=== PATIENT | male | born 1990 | race Caucasian/White ===

== ENCOUNTER 2021-04-05 11:17 | Emergency (ER) | payer BC, SELFPAY ==
--- NOTE | ~2021-04-05 | XR_ITS ---
EXAMINATION: XR foot RT min 3V DATE: 04/05/2021 11:42 INDICATION: Lateral right foot pain and swelling TECHNIQUE: Dorsoplantar, two oblique and lateral views of the right foot were obtained. COMPARISON: None. FINDINGS: Alignment is normal. No fracture. Joint spaces are normal. Soft tissues are unremarkable. IMPRESSION: 1. Negative right foot radiographs. Reviewed, dictated and finalized at location A.
[2021-04-05 11:31] VITALS: BP 126/73; PULSE 86; RESP 18; TEMP 37.3; O2SAT 98
--- NOTE | 2021-04-05 12:02 | ED.GENADULT ---
HPI - General Adult General Chief complaint: Extremity Injury, Lower Stated complaint: Possible injury to right Foot Time Seen by Provider: 04/05/21 12:03 Source: patient and RN notes reviewed Mode of arrival: ambulatory Limitations: no limitations History of Present Illness HPI narrative: 30-year-old male presents today with complaints of right foot pain for 1 day. Desmond reports RT foot rolled outward when he stepped off a curb at approximated 17:00 on 04/04/2021. Ice and Ibuprofen last this morning at 10:00 AM without relief. Hurts to bear weight. No radiation of pain. No numbness, tingling, or loss of mobility. Exacerbating factor applying weight. Denies inability to bear weight. Denies discoloration. Denies suspect foreign body. Denies hitting head or loss of consciousness. Denies fever or chills. Remains active. The patient reports he has not been diagnosed with COVID-19. The patient reports he does not have weakness, fatigue, or myalgia. The patient reports he does not have a new or worsening cough or shortness of breath. The patient reports he does not have any rhinorrhea, congestion, loss of taste or smell, sore throat, and diarrhea. Denies recent traveling. Denies concerns for COVID-19 or exposures. At this time, the patient is not suspected of having COVID-19. Some parts of this dictation were generated by voice recognition software and may contain typographical and/or grammatical inaccuracies. Related Data Allergies Allergy/AdvReac Type Severity Reaction Status Date / Time No Known Allergies Allergy Verified 04/05/21 11:35 Review of Systems Review of Systems: CONSTITUTIONAL: Denies fever, chills, sweats. EYES: Denies visual changes, redness, discharge. ENT: Denies rhinorrhea, congestion, sore throat, otalgia. CARDIOVASCULAR: Denies chest pain, palpitations, edema. RESPIRATORY: Denies dyspnea, wheezing, cough. GASTROINTESTINAL: Denies abdominal pain, nausea, vomiting, diarrhea. SKIN: Denies rash or itching. MUSCULOSKELETAL: Denies acute back pain or myalgia. Complaints of pain to the right foot. NEUROLOGIC: Denies numbness or focal weakness. PSYCHIATRIC: Denies anxiety or depression. All other systems reviewed are negative, except as documented in HPI and below. [facility] Past Medical History Medical History (Updated 04/06/21 @ 00:01 by Halie Bose) Wrist fracture, left Surgical History Surgical History (Updated 04/05/21 @ 12:14 by LAURA Birch) History of dental surgery History of surgery on left wrist Family History Family History (Updated 04/05/21 @ 12:15 by LAURA Birch) Father Alive and well Mother Alive and well Social History Social History (Updated 04/05/21 @ 12:15 by LAURA Birch) Smoking packs per day: 0.25 Smoking cigarettes per day: 5.0 Smoking status: Current every day smoker Tobacco type: cigarettes Second hand tobacco smoke exposure: Yes Alcohol intake: current Substance use: never Substance use type: does not use Living arrangements: with family Occupation/Education: occupation Gender identity (if verbalized by the patient): Male Sexual Orientation (if Verbalized by the Patient): Straight or Heterosexual Comments At time of signature, agree with the nurse past medical, surgical, social, and family history. There is no relevant family history pertinent to the presenting complaint. Exam Narrative: GENERAL: This is a well-nourished, well-developed patient, in no apparent distress. Ambulates with a limp favoring the right lower extremity. HEAD: Normocephalic, atraumatic. EYES: PERRL. Sclera clear/white. Vision is grossly intact. CARDIOVASCULAR: Regular rate and rhythm without murmurs, gallops, or rubs. RESPIRATORY: Clear to auscultation. Breath sounds equal bilaterally. No wheezes, rales, or rhonchi. GASTROINTESTINAL: Abdomen soft, non-tender, nondistended. Bowel sounds are active. No hepato-spleno
== END 2021-04-05 12:15 | disposition home or self-care (01) ==
PROVIDERS: Emergency Provider Nurse Practitioner Family
DX: S93.601A Unspecified sprain of right foot, initial encounter (principal); X50.9XXA Other and unspecified overexertion or strenuous movements or postures, initial encounter
CPT/HCPCS: 73630; 99213; G0463

== ENCOUNTER 2021-05-26 09:41 | Emergency (ER) | payer BC, SELFPAY ==
--- NOTE | ~2021-05-26 | XR_ITS ---
EXAMINATION: XR chest 2V DATE: 05/26/2021 10:11 INDICATION: Productive cough. Shortness of breath. TECHNIQUE: Frontal and lateral views of the chest were obtained. COMPARISON: None. FINDINGS: The chest demonstrates clear lungs without pneumonia, pleural effusion, or pneumothorax. Th e heart size is normal. IMPRESSION: 1. No acute cardiopulmonary disease. Reviewed, dictated and finalized at location A.
--- NOTE | 2021-05-26 09:49 | ED.URI ---
HPI - URI/Sore Throat General Chief Complaint: Upper Respiratory Infection Stated Complaint: Cough/Chest Congestion/Shortness Breath Time Seen by Provider: 05/26/21 09:49 Source: patient and RN notes reviewed History of Present Illness HPI Narrative: Patient is a 30-year-old male who presents the urgent care with complaints of 1 week cough with increased congestion and shortness of breath for the last 2 days. Patient states that he had a low-grade fever a few days ago which has since resolved. Patient has been using Mucinex and [id number] cold and flu medication for the last couple days. States that he has not been exposed to Covid and does not have a Covid vaccine. Currently denies of any chest tightness or pain. Denies of any nausea or vomiting. No other acute complaints. No acute distress noted. Patient aware of the plan of care. Some parts of this dictation were generated by voice recognition software and may contain typographical and/or grammatical inaccuracies. Related Data Allergies Allergy/AdvReac Type Severity Reaction Status Date / Time No Known Allergies Allergy Verified 05/26/21 10:19 Review of Systems Review of Systems: CONSTITUTIONAL: Denies fever, chills, or sweats. EYES: Denies visual changes, redness, or discharge. ENT: Reports of mild congestion and postnasal drainage CARDIOVASCULAR: Denies chest pain, palpitations, or edema. RESPIRATORY: Reports of nonproductive cough with intermittent dyspnea GASTROINTESTINAL: Denies abdominal pain, nausea, vomiting, or diarrhea. GENITOURINARY: Denies dysuria or hematuria. SKIN: Denies rash or itching. MUSCULOSKELETAL: Denies back pain, joint pain, or myalgia. NEUROLOGIC: Denies headache, numbness, or weakness. All other systems reviewed are negative, except as documented in HPI. [facility] Past Medical History Medical History (Updated 05/26/21 @ 10:24 by LAURA Gandhi) Wrist fracture, left Surgical History Surgical History (Updated 04/05/21 @ 12:14 by LAURA Birch) History of dental surgery History of surgery on left wrist Family History Family History (Updated 04/05/21 @ 12:15 by LAURA Birch) Father Alive and well Mother Alive and well Social History Social History (Updated 04/05/21 @ 12:15 by LAURA Birch) Smoking packs per day: 0.25 Smoking cigarettes per day: 5.0 Smoking status: Current every day smoker Tobacco type: cigarettes Second hand tobacco smoke exposure: Yes Alcohol intake: current Substance use: never Substance use type: does not use Gender identity (if verbalized by the patient): Male Sexual Orientation (if Verbalized by the Patient): Straight or Heterosexual Comments At the time of my signature, I reviewed and agree with the nursing past medical, surgical, social, and family history. There is no relevant family history pertinent to the patient complaint. Exam Narrative: GENERAL: This is a well-nourished, well-developed patient, in no apparent distress. HEAD: normocephalic, atraumatic. EYES: PERRL. Sclera clear/white. Vision is grossly intact. EARS: External ears normal, auditory canals clear and without drainage, mild fluid noted by bilateral TMs without otitis, TMs normal without perforation. Hearing grossly intact. NOSE: External nose normal with no obvious nasal discharge, nares without redness, clear rhinorrhea. THROAT: Mucous membranes moist, posterior pharynx clear. Moderate postnasal drainage NECK: Neck supple, non-tender without lymphadenopathy, masses or thyromegaly. CARDIOVASCULAR: Regular rate and rhythm without murmurs, gallops, or rubs. RESPIRATORY: Inspiratory and expiratory wheezes throughout with mild crackles. Diminished left lower SKIN: warm, intact with no suspicious lesions or rash, good texture and turgor. NEURO: awake, alert, and oriented to person, place and time. There were no obvious focal neurologic abnormalities. EXTREMITIES: No clubbing, cyanosis,
[2021-05-26 09:57] VITALS: BP 124/85; PULSE 82; RESP 18; TEMP 36.9; O2SAT 96
== END 2021-05-26 10:25 | disposition home or self-care (01) ==
PROVIDERS: Emergency Provider Nurse Practitioner Family
DX: J40 Bronchitis, not specified as acute or chronic (principal); F17.210 Nicotine dependence, cigarettes, uncomplicated
CPT/HCPCS: 71046; 99213; G0463

== ENCOUNTER 2022-03-19 08:23 | Emergency (ER) | payer BC, SELFPAY ==
[2022-03-19 08:30] VITALS: BP 137/77; PULSE 113; RESP 24; TEMP 37.2; O2SAT 95
--- NOTE | 2022-03-19 08:32 | ED.URI ---
HPI - URI/Sore Throat General Chief Complaint: Upper Respiratory Infection Stated Complaint: Chest Congestion/Body Ache Time Seen by Provider: 03/19/22 08:41 Source: patient and RN notes reviewed Mode of arrival: ambulatory Limitations: no limitations History of Present Illness HPI Narrative: 31 y/o male presented for c/o fever 100.7, cough, body aches for 2-3 days. Took negative home covid test the day sx started. Taking mucinex and ibuprofen for symptoms. Pt quit smoking cigarettes this month, continues to vape. Endorses sick contacts. Denies chest pain, palpitations, sob, wheezing, nausea, vomiting, diarrhea. MD elicited complaint: cough Related Data Allergies Allergy/AdvReac Type Severity Reaction Status Date / Time No Known Allergies Allergy Verified 03/19/22 08:32 Review of Systems Review of Systems: CONSTITUTIONAL: Endorses malaise, chills, sweats, fever EYES: Denies visual changes, redness, or discharge ENT: Reports rhinorrhea, congestion, denies sinus pain, otalgia, sore throat CARDIOVASCULAR: Denies chest pain, palpitations, edema RESPIRATORY: Reports cough, post nasal drainage. Denies dyspnea GASTROINTESTINAL: Denies abdominal pain, nausea, vomiting, diarrhea SKIN: Denies rash or itching MUSCULOSKELETAL: Endorses myalgia NEUROLOGIC: Denies headache PMFSH Past Medical History Medical History Wrist fracture, left Surgical History Surgical History History of dental surgery History of surgery on left wrist Family History Family History Father Alive and well Mother Alive and well Social History Social History Smoking packs per day: 0.25 Smoking cigarettes per day: 5.0 Smoking status: Current every day smoker Tobacco type: cigarettes Second hand tobacco smoke exposure: Yes Alcohol intake: current Substance use: never Substance use type: does not use Gender identity (if verbalized by the patient): Male Sexual Orientation (if Verbalized by the Patient): Straight or Heterosexual Exam Narrative: GENERAL: Ill-appearing, nontoxic EYES: conjunctivae clear ENT: Mucous membranes moist. TM pearly parnell with dull light reflex bilaterally; no tragal tenderness. Oropharynx erythematous without lesions or exudate, no drooling, no hoarseness, no trismus, uvula midline. CHEST: Expiratory wheezing throughout all carvalho. No respiratory distress, speaks in full sentences. HEART: Regular rate and rhythm. No murmur heard. SKIN: Warm, dry, no rash. NEURO: Alert and oriented x3. PSYCH: Normal mood and affect Course Course Emergency Course: Patient is aware of diagnosis, understands and agrees to treatment plan. Anticipatory guidance given. Patient agrees to follow-up as directed and is aware of reasons to seek care at the emergency department. Portions of this record may have been created with voice recognition software Level of Care: Express Care Visit Vital Signs Vital signs: Vital Signs Temperature 99 F 03/19/22 08:30 Pulse Rate 113 H 03/19/22 08:30 Respiratory Rate 24 H 03/19/22 08:30 Blood Pressure 137/77 03/19/22 08:30 Pulse Oximetry 95 03/19/22 08:30 Oxygen Delivery Room Air 03/19/22 08:30 Temperature 99 F 03/19/22 08:30 Pulse Rate 113 H 03/19/22 08:30 Respiratory Rate 24 H 03/19/22 08:30 Blood Pressure 137/77 03/19/22 08:30 Pulse Oximetry 95 03/19/22 08:30 Oxygen Delivery Room Air 03/19/22 08:30 reviewed MDM - URI/Sore Throat MDM Narrative Medical decision making narrative: Covid negative, reviewed with pt. Advised supportive measures and signs/symptoms to go to the ER. Pt is appropriate for outpt treatment and f/u. Differential Diagnosis Differential diagnosis: Likely upper respiratory infection, sinusitis
== END 2022-03-19 09:12 | disposition home or self-care (01) ==
PROVIDERS: Emergency Provider Nurse Practitioner Family
DX: J40 Bronchitis, not specified as acute or chronic (principal); Z20.822 Contact with and (suspected) exposure to COVID-19; F17.210 Nicotine dependence, cigarettes, uncomplicated
CPT/HCPCS: 87426; 99213; C9803; G0463

== ENCOUNTER 2022-05-30 08:23 | Emergency (ER) | payer BC, SELFPAY ==
--- NOTE | 2022-05-30 08:23 | ED.MALEGU ---
HPI - Male Genitourinary General Chief complaint: Urogenital-Male Stated complaint: poss uti Time Seen by Provider: 05/30/22 08:24 Source: patient and RN notes reviewed History of Present Illness HPI Narrative: Patient is a 31-year-old male who presents the urgent care with complaints of dark urine, fatigue and intermittent fevers. Patient states that last week he had fevers off and on and was just not feeling right . Patient states that he has felt sick with an upper respiratory infection for the last few weeks and has been treating himself with [id number] Mucinex. Patient states that those symptoms have gotten better. States that he went out on Monday and woke up yesterday with increased dark urine and some abdominal discomfort. Patient states he has been making bowel movements but yet feels constipated. Patient has not taken anything [id number] for his symptoms. Denies any concern for STD. No other acute complaints. No acute distress noted. Patient aware of the plan of care. Some parts of this dictation were generated by voice recognition software and may contain typographical and/or grammatical inaccuracies. Related Data Allergies Allergy/AdvReac Type Severity Reaction Status Date / Time No Known Allergies Allergy Verified 05/30/22 08:35 Review of Systems Review of Systems: CONSTITUTIONAL: Denies fever, chills, or sweats. EYES: Denies visual changes, redness, or discharge. ENT: Denies rhinorrhea, congestion, sore throat, or otalgia. CARDIOVASCULAR: Denies chest pain, palpitations, or edema. RESPIRATORY: Reports of cough without dyspnea GASTROINTESTINAL: Reports of constipation and intermittent abdominal discomfort GENITOURINARY: Reports of dark urine with change in flow SKIN: Denies rash or itching. MUSCULOSKELETAL: Denies back pain, joint pain, or myalgia. NEUROLOGIC: Denies headache, numbness, or weakness. All other systems reviewed are negative, except as documented in HPI. [facility] Past Medical History Medical History Wrist fracture, left Surgical History Surgical History History of dental surgery History of surgery on left wrist Family History Family History Father Alive and well Mother Alive and well Social History Social History Smoking packs per day: 0.25 Smoking cigarettes per day: 5.0 Smoking status: Current every day smoker Tobacco type: cigarettes Second hand tobacco smoke exposure: Yes Alcohol intake: current Substance use: never Substance use type: does not use Gender identity (if verbalized by the patient): Male Sexual Orientation (if Verbalized by the Patient): Straight or Heterosexual Comments At the time of my signature, I reviewed and agree with the nursing past medical, surgical, social, and family history. There is no relevant family history pertinent to the patient complaint. Exam Narrative: GENERAL: This is a well-nourished, well-developed patient, in no apparent distress. HEAD: normocephalic, atraumatic. EYES: PERRL. Sclera clear/white. Vision is grossly intact. EARS: External ears normal NOSE: External nose normal with no obvious nasal discharge, nares without redness, no rhinorrhea. THROAT: Mucous membranes moist NECK: Neck supple CARDIOVASCULAR: Regular rate and rhythm without murmurs, gallops, or rubs. RESPIRATORY: Expiratory wheezes to upper lobes. GASTROINTESTINAL: Abdomen soft, non-tender, nondistended. Bowel sounds are active. No guarding. SKIN: warm, intact with no suspicious lesions or rash, good texture and turgor. NEURO: awake, alert, and oriented to person, place and time. There were no obvious focal neurologic abnormalities. EXTREMITIES: No clubbing, cyanosis, or edema. BACK: Negative bilateral CVA tenderne
[2022-05-30 08:36] VITALS: BP 125/80; PULSE 113; RESP 18; TEMP 36.6; O2SAT 98
[2022-05-30 09:02] LABS: Glucose Point of Care 115 mg/dl (65-105)
== END 2022-05-30 08:57 | disposition short-term general hospital (02) ==
PROVIDERS: Emergency Provider Nurse Practitioner Family
DX: R82.2 Biliuria (principal); F17.210 Nicotine dependence, cigarettes, uncomplicated
CPT/HCPCS: 81003; 82948; 99212; G0463

== ENCOUNTER 2023-07-12 13:09 | Emergency (ER) | payer BC, SELFPAY ==
--- NOTE | 2023-07-12 13:11 | ED.URI ---
HPI - URI/Sore Throat General Chief Complaint: Upper Respiratory Infection Stated Complaint: poss bronchitis Time Seen by Provider: 07/12/23 13:10 Source: patient Mode of arrival: ambulatory Limitations: no limitations History of Present Illness HPI Narrative: Bernard was a 32-year-old male patient presenting to the clinic today with complaints of possible bronchitis. He reports he has had cough and mild shortness of breath x1 week. No fever or chills. Denies any sore throat. Denies any known exposure of to anyone with COVID, flu, or strep. He is a current smoker-vaping Related Data Allergies Allergy/AdvReac Type Severity Reaction Status Date / Time No Known Allergies Allergy Verified 07/12/23 13:20 Review of Systems Review of Systems: Pertinent positives per HPI. Patient denies any fever, chills, rash, headache, visual changes, dizziness, cough, runny nose, sore throat, shortness of breath, chest pain, palpitations, nausea, vomiting, diarrhea, constipation, abdominal pain, or any urinary issues. [facility] Past Medical History Medical History Wrist fracture, left Surgical History Surgical History History of dental surgery History of surgery on left wrist Family History Family History Father Alive and well Mother Alive and well Social History Social History Smoking packs per day: 0.25 Smoking cigarettes per day: 5.0 Smoking status: Current every day smoker Tobacco type: cigarettes Second hand tobacco smoke exposure: Yes Alcohol intake: current Substance use: never Substance use type: does not use Living arrangements: with family Occupation/Education: occupation Gender identity (if verbalized by the patient): Male Sexual Orientation (if Verbalized by the Patient): Straight or Heterosexual Comments At the time of my signature, I reviewed and agree with the nursing past medical, surgical, social, and family history. There is no relevant family history pertinent to the patient complaint. Exam Narrative: General: Well-developed, well nourished, in no apparent distress Head: Normocephalic, atraumatic Eyes: Pupils equally round and reactive to light bilaterally, EOM intact, sclera and conjunctive clear, no discharge, lids normal Ears: TMs intact and clear, ear canals clear, no drainage, grossly hearing normal. Nose: Nares patent, no discharge, no inflammation, no sinus tenderness. Mouth: Oropharynx without lesions or masses, good dentition, MMM. Neck: Supple, trachea midline, no enlargement of anterior or posterior cervical nodes, no thyroid masses or goiter palpable. Cardio: Regular rate and rhythm, s1 and s2 normal, no murmur appreciated. Resp: Clear to auscultation bilaterally anteriorly and posteriorly, no rhonchi, rales, wheezing or rubs Course Course Emergency Course: Portions of this record may have been created with voice recognition software. Level of Care: Express Care Visit Vital Signs Vital signs: Vital signs reviewed MDM - URI/Sore Throat MDM Narrative Medical decision making narrative: At the time of visit patient is resting comfortably on the exam table. I suspect patient has acute bronchitis. Will send in prescription for prednisone and albuterol inhaler. Supportive measures were discussed with the patient he voiced understanding discharge instructions and agrees to treatment plan. Return precautions were reviewed. Patient appears to be nontoxic. Differential Diagnosis Differential diagnosis: Likely upper respiratory infection, otitis media, sinusitis, viral infection, bronchitis, influenza, pharyngitis and other (COVID) Discharge Plan Discharge Clinical Impression: Bronchitis Patient Disposition: Home, Self-Ca
[2023-07-12 13:14] VITALS: BP 133/90; PULSE 98; RESP 16; TEMP 36.9; O2SAT 94
[2023-07-12 13:21] VITALS: BP 133/90; PULSE 98; RESP 16; TEMP 36.9; O2SAT 94
== END 2023-07-12 13:25 | disposition home or self-care (01) ==
LOC: EXPBETH 13:12
PROVIDERS: Emergency Provider Nurse Practitioner Family
DX: J40 Bronchitis, not specified as acute or chronic (principal); F17.210 Nicotine dependence, cigarettes, uncomplicated
CPT/HCPCS: 99213; G0463

== ENCOUNTER 2024-06-27 15:47 | Emergency (ER) | payer BC, SELFPAY ==
--- NOTE | ~2024-06-27 | XR_ITS ---
EXAMINATION: XR chest 2V 06/27/2024 16:14 INDICATION: Cough and shortness of breath PROCEDURE: 2 view chest COMPARISON: 01/24/2021 FINDINGS: The lungs are clear. The lungs are hyperinflated which is consistent with, but not diagnost ic of chronic obstructive pulmonary disease. The cardiomediastinal silhouette is within normal limit s. There are no pleural effusions. There is no pneumothorax suspected. IMPRESSION: 1: NO ACUTE CARDIOPULMONARY DISEASE. Reviewed, dictated and finalized at location B. RMATICS DEVELOPER
[2024-06-27 15:54] VITALS: BP 142/86; PULSE 98; RESP 24; TEMP 36.7; O2SAT 96
--- NOTE | 2024-06-27 16:03 | ED.URI ---
HPI - URI/Sore Throat General Chief Complaint: Upper Respiratory Infection Stated Complaint: Congestion Source: patient Mode of arrival: ambulatory Limitations: no limitations History of Present Illness HPI Narrative: 33 y/o male presented for c/o at least 3 weeks of cough and wheezing. States he will briefly feel shortness of breath, then feels better after coughing. Taking Mucinex. States he had bronchitis last year and this feels similar. Pt does not follow with a pcp, denies medical history. Pt vapes. Related Data Allergies Allergy/AdvReac Type Severity Reaction Status Date / Time No Known Allergies Allergy Verified 07/12/23 13:20 Review of Systems Review of Systems: CONSTITUTIONAL: Denies body aches, fever, chills, or sweats. EYES: Denies visual changes, redness, or discharge. ENT: Denies rhinorrhea, congestion, sore throat, or otalgia. CARDIOVASCULAR: Denies chest pain, palpitations, or edema. RESPIRATORY: Reports cough, sob, wheezing. MUSCULOSKELETAL: Denies back pain, joint pain, or myalgia. NEUROLOGIC: Denies headache, numbness, tingling, or weakness. All systems reviewed & are unremarkable except as noted in HPI and below PMFSH Past Medical History Medical History Wrist fracture, left Surgical History Surgical History History of dental surgery History of surgery on left wrist Family History Family History Father Alive and well Mother Alive and well Social History Social History (Updated 06/27/24 @ 16:45 by Jeny Anderson APRN) Smoking packs per day: 0.25 Smoking cigarettes per day: 5.0 Smoking status: Current every day smoker Tobacco type: cigarettes and e-cigarettes/vaping Second hand tobacco smoke exposure: Yes Alcohol intake: current Substance use: never Substance use type: does not use Living arrangements: with family Occupation/Education: occupation Gender identity (if verbalized by the patient): Male Sexual Orientation (if Verbalized by the Patient): Straight or Heterosexual Comments At time of signature, I have reviewed and agree with nursing past medical, surgical, social and family history unless otherwise noted. Please see nursing chart for further information. There is no relevant family history pertinent to the presenting complaint Exam Narrative: GENERAL: Well-appearing, in no acute distress. EYES: EOMI. No redness or drainage. Conjunctivae normal. ENT: Mucous membranes pink and moist. No rhinorrhea. TMs normal bilaterally. Throat normal. Uvula midline. NECK: Normal AROM. Supple. CHEST: No respiratory distress. Wheezing to all carvalho. HEART: Regular rate and rhythm. No murmur appreciated. ABDOMEN: Soft, nontender, nondistended, normal active bowel sounds. SKIN: Warm, dry. Capillary refill normal. Normal skin turgor. NEURO: Alert and oriented x3. Course Course Emergency Course: Patient is aware of diagnosis, understands and agrees to treatment plan. Anticipatory guidance given. Patient agrees to follow-up as directed and is aware of reasons to seek care at the emergency department. Portions of this record may have been created with voice recognition software Level of Care: Express Care Visit Vital Signs Vital signs: Vital Signs Temperature 98.0 F 06/27/24 15:54 Pulse Rate 98 06/27/24 15:54 Respiratory Rate 24 H 06/27/24 15:54 Blood Pressure 142/86 H 06/27/24 15:54 Pulse Oximetry 96 06/27/24 15:54 Oxygen Delivery Room Air 06/27/24 15:54 Temperature 98.0 F 06/27/24 15:54 Pulse Rate 98 06/27/24 15:54 Respiratory Rate 24 H 06/27/24 15:54 Blood Pressure 142/86 H 06/27/24 15:54 Pulse Oximetry 96 06/27/24 15:54 Oxygen Delivery Room Air 06/27/24 15:54 MDM - URI/Sore Throat MDM Narrative Medical decision making narrative: Discussed physical exam findings and CXR. Pt declined a breathing treatment. Reviewed Rx's. Advised supportive measures and signs/symptoms to go to the ER. Pt is appropriate for outpt treatment and f/u. Differential Diagnosis Differential diagnosis: Likely upper respiratory infection, viral infection, bronchitis and other (Angioedema, perforation, asthma, pneumonia, PE, tension pneumothorax, cardiac tamponade [place], pericarditis, pleural effusion, CHF, bronchitis, cardiac arrhythmia) Imaging Data Radiologist's impression: Patient: Desmond Crawford : 1990 MR#: [id number] Age: 33 Acct:[id number] Loc: [facility] ADM Date: 06/27/24Attending Dr: Ordering Physician: Jeny Anderson APRN Date of Service: 06/27/24 Procedure(s): XR chest 2V Accession Number(s): [id number] cc: Vimal Wellington MD; Jeny Anderson APRN~ EXAMINATION: XR chest 2V 06/27/2024 16:14 INDICATION: Cough and shortness of breath PROCEDURE: 2 view chest COMPARISON: 01/24/2021 FINDINGS: The lungs are clear. The lungs are hyperinflated which is consistent with, but not diagnostic of chronic obstructive pulmonary disease. The cardiomediastinal silhouette is within normal limits. There are no pleural effusions. There is no pneumothorax suspected. IMPRESSION: 1: NO ACUTE CARDIOPULMONARY DISEASE. Discharge Plan Discharge Clinical Impression: Bronchitis Patient Disposition: Home, Self-Care Condition: Stable Instructions: Antibiotic Form, Acute Bronchitis (ED) Additional Instructions: Acute bronchitis can be contagious because it is usually caused by infection with a virus or bacteria. It is usually for a few days but you can be contagious for up to one week. Take medication as directed Recommendations: over the counter Cough syrup may cause drowsiness; avoid driving or take it at night time. Tylenol 1000mg every 8 hours as needed for pain Smoking/vaping cessation Avoid triggers Zyrtec for allergies/nasal congestion or drainage Rest, fluids, and increase humidity of the air at home. Follow up with your primary care provider as needed in 1 week Go to the ER for worsening symptoms or concerns Prescriptions: New benzonatate 200 mg capsule 200 mg PO TID PRN (Reason: cough) Qty: 20 0RF prednisone 20 mg tablet 20 mg PO DAILY Qty: 18 0RF Rx Instructions: take 3 tablets daily for 3 days, then 2 tablets daily for 3 days then 1 tablet daily for 3 days albuterol sulfate 90 mcg/actuation HFA aerosol inhaler 2 inh inhalation QID PRN (Reason: shortness of breath or wheezing) Qty: 8.5 0RF No Action prednisone 20 mg tablet 40 mg PO DAILY 5 Days Qty: 10 0RF albuterol sulfate 90 mcg/actuation HFA aerosol inhaler 2 puff inhalation Q4-6H PRN (Reason: shortness of breath or wheezing) 30 Days Qty: 8.5 0RF Follow-up/Referrals: Vimal Wellington MD [Primary Care Provider] -
== END 2024-06-27 16:45 | disposition home or self-care (01) ==
PROVIDERS: Emergency Provider Nurse Practitioner Family; PCP Emergency Medicine
DX: J40 Bronchitis, not specified as acute or chronic (principal); F17.210 Nicotine dependence, cigarettes, uncomplicated; F17.290 Nicotine dependence, other tobacco product, uncomplicated
CPT/HCPCS: 71046; 99213; G0463

== ENCOUNTER 2024-10-31 00:52 | Day surgery (SDC) | payer BC, SELFPAY ==
[2024-08-02 15:06] VITALS: BMI 33.2
[2024-10-23 11:29] VITALS: BMI 33.3
--- OUTSIDE RECORDS SUMMARY | 2024-10-31 00:55 | XMS_ITS | Continuity of Care Document ---
Author Organization [facility] Address [address] [facility] [place] [address] Phone Care Team Providers Care Plastic Sheets Finishing Supervisor Name Role Phone Amish CLARKE, Vimal Unavailable [...] Diagnoses Date Provider Providers Copied on Encounter [facility], [address] [place], [place], [id number], tel:[phone] [facility] No Information 5 Amish Celis. [address] [place], [place], [id number] , [place]. tel:[phone] OFFICE/OUTPA TIENT VISIT, EST [facility], [address] [place], [place], [id number], tel:[phone] [facility] GERD1 (chief complaint) fatigue1 (chief complaint) GERD w/o esophagitisFatigueO bstructive sleep apnea hypopnea 4 Amish Celis. [address], [place], [place], [address] , [place]. [phone] PREV VISIT, NEW, AGE 18-39 [facility], [address], [place], [place], [id number], [place] tel:[phone] [facility] physical (chief complaint) Encounter for general adult medical exam w abnormal findingsGERD w/o esophagitisAcute bronchitisAllergic rhinitis due to pollen 4 Wellington Vimal. [address], [place], [place], [address] , [place]. [phone] Family History Family Member Type Diagnosis Age [...] with dys[facility]agia [facility] than one year Pt [...]
--- OUTSIDE RECORDS SUMMARY | 2024-10-31 00:55 | XMS_ITS | Referral Summary ---
Author Organization [facility] Address [address] [place] [address] Care Team Providers Care Patent Lawyer Name Role Phone Unavailable Primary Care Provider Unavailabl e Source Comments [facility],non-owned Affiliates and Associated Physician Practices is amultiple site organization consisting of ambulatory clinics and hospital sitesin [place], [place], [place] and [place]. This disclosure is being madepursuant to the Care Everywhere program and may not contain all information available regarding this patient. Last updated 18.[facility] [employer] Allergies No known active allergies Social History Tobacco Use Types Packs/Day Years Used Date Smoking Tobacco: Some Days Cigarettes Alcohol Use Standard Drinks/Week Comments Yes 0 (1 standard drink = 0.6 oz pur e alcohol) social Sex and Gender Information Value Date Recorded Sex Assigned at Not on file Gender Identity Not on file Sexual Orientation Not on file Last Filed Vital Signs Vital Sign Reading Time Taken Comments Blood Pressure 134/87 07/22/2017 5:15 PM MAIL HANDLER Pulse 90 07/22/2017 5:15 PM MAIL HANDLER Temperature 36.5 C (97.7 F) 07/22/2017 4:23 PM MAIL HANDLER Respiratory Rate 18 07/22/2017 4:23 PM MAIL HANDLER Oxygen Saturation 98% 07/22/2017 5:15 PM MAIL HANDLER Inhaled Oxygen Concentration - - Weight 102.1 kg (225 lb) 07/22/2017 4:23 PM MAIL HANDLER Height 175.3 cm (5' 9 ) 07/22/2017 4:23 PM MAIL HANDLER Body Mass Index 33.23 07/22/2017 4:23 PM MAIL HANDLER Plan of Treatment Not on file Desmond Crawford [employer] Comp Self [address] [place] [address]
--- OUTSIDE RECORDS SUMMARY | 2024-10-31 00:55 | XMS_ITS | Clinical Summary ---
Author Organization [facility] Address [address] [place] [address] Care Team Providers Care Mower Sharpener Name Role Phone Unavailable Primary Care Provider Unavailabl e Source Comments [facility],non-owned Affiliates and Associated Physician Practices is amultiple site organization consisting of ambulatory clinics and hospital sitesin [place], [place], [place] and [place]. This disclosure is being madepursuant to the Care Everywhere program and may not contain all information available regarding this patient. Last updated 18.[facility] [employer] Allergies No known active allergies Social History [...] Comments Blood Pressure 134/87 07/22/2017 5:15 PM SOLAR BUSINESS DEVELOPER Pulse 90 07/22/2017 5:15 PM SOLAR BUSINESS DEVELOPER Temperature 36.5 C (97.7 F) 07/22/2017 4:23 PM SOLAR BUSINESS DEVELOPER Respiratory Rate 18 07/22/2017 4:23 PM SOLAR BUSINESS DEVELOPER Oxygen Saturation 98% 07/22/2017 5:15 PM SOLAR BUSINESS DEVELOPER Inhaled Oxygen Concentration - - Weight 102.1 kg (225 lb) 07/22/2017 4:23 PM SOLAR BUSINESS DEVELOPER Height 175.3 cm (5' 9 ) 07/22/2017 4:23 PM SOLAR BUSINESS DEVELOPER Body Mass Index 33.23 07/22/2017 4:23 PM SOLAR BUSINESS DEVELOPER Plan of Treatment Health Maintenance Due Date Last Done Comments HIV SCREENING 2004 HEPATITIS C SCREENING 10/07/2007 DTAP/TDAP/TD VACCINES (1 - Tdap) 2008 HEPATITIS B VACCINE (1 of 3 - 19+ 3-dose series) 2008 COVID-19 VACCINE (2023-2 5 season) 2024 INFLUENZA VACCINE (#1) 2024 DEPRESSION SCREENING 08/21/2024 ZOSTER VACCINE (1 of 2) 2039 HIB VACCINE Aged Out No longer eligi ble based on patient's age to complete this topic HPV VACCINE Aged Out No longer eligi ble based on patient's age to complete this topic MENINGOCOCCAL (Group B) VACC INE SHARED DECISION-MAKING Aged Out No longer eligibl e based on patient's age to complete this topic MENINGOCOCCAL GROUPS A/C/Y/W VACCINE Aged Out No longer eligible b ased on patient's age to complete this topic PNEUMOCOCCAL VACCINE Aged Out No long er eligible based on patient's age to complete this topic Desmond Crawford Workers Comp Self [address] [place] [address]
--- OUTSIDE RECORDS SUMMARY | 2024-10-31 00:55 | XMS_ITS | Patient Health Summary ---
Author Organization [facility] [employer] Address [address] [place] [address] Care Team Providers Care Bulb Tester Name Role Phone Unavailable Primary Care Provider Unavailabl e Note from [facility],non-owned Affiliates and Associated Physician Practices is amultiple site organization consisting of ambulatory clinics and hospital sitesin [place], [place], [place] and [place]. This disclosure is being madepursuant to the Care Everywhere program and may not contain all information available regarding this patient. Last updated 18.[facility] [employer] Allergies No known active allergies Social History [...] Comments Blood Pressure 134/87 07/22/2017 5:15 PM ORCHESTRATOR Pulse 90 07/22/2017 5:15 PM ORCHESTRATOR Temperature 36.5 C (97.7 F) 07/22/2017 4:23 PM ORCHESTRATOR Respiratory Rate 18 07/22/2017 4:23 PM ORCHESTRATOR Oxygen Saturation 98% 07/22/2017 5:15 PM ORCHESTRATOR Inhaled Oxygen Concentration - - Weight 102.1 kg (225 lb) 07/22/2017 4:23 PM ORCHESTRATOR Height 175.3 cm (5' 9 ) 07/22/2017 4:23 PM ORCHESTRATOR Body Mass Index 33.23 07/22/2017 4:23 PM ORCHESTRATOR Procedures * XR HAND LEFT 3VW OR MORE(Performed 07/22/2017) Performed for Left hand pain Results * XR HAND 3+ VW LEFT (07/22/2017 5:22 PM ORCHESTRATOR) Anatomical Region Laterality Modality Wrist / Hand Radiographic Merry ging 07/22/2017 5:39 PM ORCHESTRATOR Narrative 07/22/2017 5:40 PM ORCHESTRATOR 3 views left hand INDICATION: Left hand pain, numbness, and tingling. COMPARISON: None available FINDINGS: There is a single screw fixating a healed scaphoid fracture. There is no evidence of avascular necrosis to the scaphoid bone. There is no evidence of acute fracture or malalignment. There is mild osteochondral irregularity along the scapholunate joint. Procedure Note Talisha Guerra MD - 07/22/2017 3 views left hand INDICATION: Left hand pain, numbness, and tingling. COMPARISON: None available FINDINGS: There is a single screw fixating a healed scaphoid fracture. There is no evidence of avascular necrosis to the scaphoid bone. There is no evidence of acute fracture or malalignment. There is mild osteochondral irregularity along the scapholunate joint. Trent Duke DO DIAGNOSTIC IMAGING O [employer]ABLES
--- OUTSIDE RECORDS SUMMARY | 2024-10-31 00:55 | XMS_ITS | Clinical Summary ---
Author Organization [facility] Care Team Providers Care Hand Tacker Name Role Phone Unavailable Primary Care Provider Unavailabl e Social History Tobacco Use Types Packs/Day Years Used Date Smoking Tobacco: Never Assessed Sex and Gender Information Value Date Recorded Sex Assigned at Not on file Legal Sex Male 9:03 AM PAPER BALER Gender Identity Not on file Sexual Orientation Not on file Plan of Treatment Health Maintenance Due Date Last Done Comments Hepatitis C Virus (HCV) Screening 1990 TdaP Immunization 1990 Hepatitis B Immunization (1 of 3 - 19+ 3-dose series) 2008 Influenza Immunization (#1) 2024 SARS-COV-2 Immunization ( - 2023- season) 2024 07/02/2021, 06/04/2021 Respiratory Syncytial Virus (RSV) Immunization (Adult) (1 - 1-dose 75+ series) 2064 Meningococcal Immunization (ACWY) Aged Out No longer eligible b ased on patient's age to complete this topic Pneumococcal Immunization Combined Aged Out No longer eligible b ased on patient's age to complete this topic Rotavirus Immunization Aged Out No lo nger eligible based on patient's age to complete this topic
[2024-10-31 10:07] VITALS: BP 128/83; PULSE 82; RESP 16; TEMP 36.3; O2SAT 96; BMI 34.1
[2024-10-31] MEDS: LACTATED RINGERS 1,000 ML 150 ML IV CONT (10:14)
--- NOTE | 2024-10-31 10:47 | P.PNAN_ITS ---
Anes - Initial Pre Proc Eval Procedure: Operation Date: 10/31/24 11:30 Proposed Procedures p Esophagogastroduodenoscopy - Lino Delgadillo MD Date/Time: 10/31/24 10:47 Surgeon: Lino Delgadillo MD Pre Op Diagnosis: GERD Patient Data Age: 34 Gender: M Height: 1.75 m Weight: 104.8 kg Last Vital Signs Temp 36.3 C L 10/31/24 10:07 Pulse 82 10/31/24 10:07 Resp 16 10/31/24 10:07 BP 128/83 10/31/24 10:07 Pulse Ox 96 10/31/24 10:07 O2 Del Method Room Air 10/31/24 10:07 Allergies Allergy/AdvReac Type Severity Reaction Status Date / Time No Known Allergies Allergy Verified 10/31/24 10:06 Home Medications ?Medication ?Instructions ?Recorded ?Confirmed ?Type loratadine 10 mg tablet (Claritin) 10 mg PO DAILY 08/02/24 10/31/24 History omeprazole 20 mg capsule,delayed 20 mg PO DAILY 08/02/24 10/31/24 History release Patient hx anesthesia problems: none Family hx anesthesia problems: none Results Review: All pre-operative results and documents have been reviewed as part of the pre- operative evaluation. [facility] Past Medical History Medical History (Updated 10/31/24 @ 10:47 by Ebenezer Greene MD) Obesity Wrist fracture, left Surgical History Surgical History History of dental surgery History of surgery on left wrist Family History Family History Father Alive and well Mother Alive and well Social History Social History Smoking packs per day: 0.25 Smoking cigarettes per day: 5.0 Smoking status: Current every day smoker Tobacco type: cigarettes and e-cigarettes/vaping Second hand tobacco smoke exposure: Yes Alcohol intake: current Substance use: never Substance use type: does not use Living arrangements: with family Occupation/Education: occupation Gender identity (if verbalized by the patient): Male Sexual Orientation (if Verbalized by the Patient): Straight or Heterosexual Anes - Eval Final PreProcedure Day of Procedure 10/31/24 10:47 Patient weight: obese Heart: regular rate and rhythm Lungs: clear to auscultation Airway: Mallampati scale class II Neurological: alert and oriented Last oral intake: >/= 8 hours ASA classification: II Emergent: no Anesthetic plan: proceed Anesthesia type and monitoring: general GIVS and standard monitoring Results Review: All pre-operative results and documents have been reviewed as part of the pre- operative evaluation. Informed Consent: The patient's anesthetic plan and its attendant risks and benefits were discussed with the patient/family/POA. Questions were solicited and answers provided to the satisfaction of the patient/family/POA.
--- NOTE | 2024-10-31 11:13 | PM.HPGS ---
History of Present Illness History of Present Illness Consent: Risks, benefits, and alternatives have been discussed and questions answered. Patient agrees to proceed with procedure. Chief complaint: GERD Narrative: Desmond Crawford is a 34 year old male with dysphagia and gerd, better since using omeprazole OTC, never had egd Review of Systems Review of Systems: All systems reviewed & are unremarkable except as noted in HPI and below PMFSH Past Medical History Medical History (Updated 10/31/24 @ 11:14 by Lino Delgadillo MD) Dysphagia GERD (gastroesophageal reflux disease) Obesity Wrist fracture, left Surgical History Surgical History History of dental surgery History of surgery on left wrist Family History Family History Father Alive and well Mother Alive and well Social History Social History Smoking packs per day: 0.25 Smoking cigarettes per day: 5.0 Smoking status: Current every day smoker Tobacco type: cigarettes and e-cigarettes/vaping Second hand tobacco smoke exposure: Yes Alcohol intake: current Substance use: never Substance use type: does not use Living arrangements: with family Occupation/Education: occupation Gender identity (if verbalized by the patient): Male Sexual Orientation (if Verbalized by the Patient): Straight or Heterosexual Meds Home Medications and Allergies Home Medications ?Medication ?Instructions ?Recorded ?Confirmed ?Type loratadine 10 mg tablet (Claritin) 10 mg PO DAILY 08/02/24 10/31/24 History omeprazole 20 mg capsule,delayed 20 mg PO DAILY 08/02/24 10/31/24 History release Allergies Allergy/AdvReac Type Severity Reaction Status Date / Time No Known Allergies Allergy Verified 10/31/24 10:06 Vital Signs Vital Signs - 24 hr 10/31/24 10:07 Temperature 97.4 F L Pulse Rate 82 Respiratory Rate 16 Blood Pressure 128/83 Pulse Oximetry 96 Oxygen Delivery Room Air Exam Const: General: comfortable and no acute distress HENMT: Face/Nose/Sinus: Normal nares present Eyes: General: appearance normal, both eyes and all related structures Neck: Neck: no JVD Resp: Auscultation: clear to auscultation bilaterally Cardio: Rate: regular rate Rhythm: regular rhythm GI: Inspection: non-distended GI Palp: Yes Soft to palpation Skin: General skin exam: normal color Neuro: General: gait normal Speech: normal speech Extrem: General: normal to inspection Psych: Mental Status: mental status grossly normal Assessment and Plan Assessment and plan (1) GERD (gastroesophageal reflux disease): Code(s): K21.9 - Gastro-esophageal reflux disease without esophagitis Status: Acute Assessment and Plan: egd with bx (2) Dysphagia: Code(s): R13.10 - Dysphagia, unspecified Status: Acute Assessment and Plan: ? EoE
[2024-10-31 11:28] VITALS: BP 113/61; PULSE 90; RESP 23; O2SAT 99
[2024-10-31 11:38] VITALS: BP 120/72; PULSE 84; RESP 20; O2SAT 99
[2024-10-31 11:48] VITALS: BP 117/73; PULSE 75; RESP 20; O2SAT 99
== END 2024-10-31 11:59 | disposition home or self-care (01) ==
PROVIDERS: PCP Emergency Medicine; Referring Provider Emergency Medicine; Visit Provider Internal Medicine Gastroenterology
PROC: 0DJ08ZZ Inspection of Upper Intestinal Tract, Via Natural or Artificial Opening Endoscopic (ICD-10-PCS; CPT 43239; principal; 2024-10-31 11:30)
DX: K21.9 Gastro-esophageal reflux disease without esophagitis (principal); K29.50 Unspecified chronic gastritis without bleeding; E66.9 Obesity, unspecified; Z68.34 Body mass index [BMI] 34.0-34.9, adult; F17.210 Nicotine dependence, cigarettes, uncomplicated; F17.290 Nicotine dependence, other tobacco product, uncomplicated; Z98.890 Other specified postprocedural states
CPT/HCPCS: 43239; 88305; J2003; J2704; J7120

== ENCOUNTER 2025-05-04 10:01 | Emergency (ER) | payer BC, SELFPAY ==
--- OUTSIDE RECORDS SUMMARY | 2024-09-09 07:38 | XMS_ITS | Continuity of Care Document ---
Author Organization [facility] Address [address] [address] Phone Care Team Providers Care Underwriting Assistant Name Role Phone Amish CLARKE, Vimal Unavailable Unavailable Allergies, Adverse Reactions, Alerts Substance Reaction Status Criticality No Known Allergies Active No Inform ation Medications Medication Instructions Dosage Effective Dates (start - stop) Status Comments omeprazole 20 mg capsule,delayed release take 1 capsule by oral route every day before a meal 20 MG - Active albuterol sulfate HFA 90 mcg/actuation aerosol inhaler inhale 1 puff by inhalation route every 4 - 6 hours as needed 1 puff - Active PRN for sob Claritin 10 mg tablet take 1 tablet by oral route every day 10 MG - Active Procedures Procedure Date OFFICE/OUTPATIENT VISIT, EST PREV VISIT, NEW, AGE 18-39 OFFICE/OUTPATIENT VISIT, NEW Advance Directives Directive Yes / No Effective Date File Name No Information Encounters Encounter Description Practice Location Reason(s) For Visit Diagnoses Date Provider Providers Copied on Encounter [facility], [address] [place], [place], [id number], tel:[phone] [facility] No Information 5 Amish Celis. [address] [place], [place], [id number] , [place]. tel:[phone] OFFICE/OUTPA TIENT VISIT, EST [facility], [address] [place], [place], [id number], tel:[phone] [facility] GERD1 (chief complaint) fatigue1 (chief complaint) GERD w/o esophagitisFatigueO bstructive sleep apnea hypopnea 4 Amish Celis. [address], [address], [place], [place], [id number] , [place]. [phone] PREV VISIT, NEW, AGE 18-39 [facility], [address], [place], [place], [id number], [place] tel:[phone] [facility] physical (chief complaint) Encounter for general adult medical exam w abnormal findingsGERD w/o esophagitisAcute bronchitisAllergic rhinitis due to pollen 4 Wellington Vimal. [address], [address], [place], [place], [address] , [place]. [phone] Family History Family Member Type Diagnosis Age At Onset Father Problem Alive and well Mother Problem Alive and well Brother Problem Alive and well Payers Payer name Insurance type Covered constitution party ID Authoriza tion(s) No Information Social History Type Description Quantity Date Captured Comments Alcohol Use Details Unknown Caffeine Use Details Unknown Tobacco Use Status Smoking Status No Information Sex Male Chief Complaint And Reason For Visit No Information Plan Of Treatment Date Type Action Status Referral Ordered: SLEEP STUDY, ATTENDED ordered Referral Ordered: OPERATIVE UPPER GI ENDOSCOPY ordered History Of Present Illness Encounter Date Complaint History Of Prese nt Illness GERD1 pt has chronic G ERD with dysphagia [facility] than one year Pt is on omeprazole which is helping. Pt denies any acute symptoms recently Pt has EGD scheduled in two weeks. Pt needs omeprazole refilled .Pt denies any abd pain fatigue1 Pt feels tired f or several months or even longer Pt snores at night and feels very tired in the morning Pt denies any poor libido or ED. physical Pt needs annual physical pt has chronic GERD. Pt takes daily omeprazole from OTC. pt denies any dysphagia Pt sometimes feels that food get stuck in middle of his chest. pt denies any postprandial nausea or vomiting Pt denies any abd pain Pt denies any early satiety, appetite loss. Pt denies any constipation or diarrhea or blood in stool. Pt c/o acute onset of some wheezing and sob for several days. Pt c/o mild cough. Pt denies any hemoptysis Pt states that he gets bronchitis typically this time of the year and he usually responds to abx and albuterol inhaler Pt denies any chest pain . Pt denies any fever Instructions Date Instruction Additional Infor mation No Information Assessments Type Assessment Date No Information
--- NOTE | ~2025-05-04 | XR_ITS ---
EXAMINATION: XR chest 2V, 05/04/2025 10:22 CDT HISTORY: cough, sob x1 week, wheezing COMPARISON: No comparisons available. Technique: 2 views obtained. Findings: The lungs are clear, no effusion. No pneumothorax. Heart is normal size. Mediastinal and hilar contours are within normal limits. Bony thorax no acute abnormality. Impression: No acute cardiopulmonary abnormality. Reviewed, dictated and finalized at location A. Impression: No acute cardiopulmonary abnormality.
--- OUTSIDE RECORDS SUMMARY | 2025-05-04 10:06 | XMS_ITS | Clinical Summary ---
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
--- OUTSIDE RECORDS SUMMARY | 2025-05-04 10:06 | XMS_ITS | Clinical Summary ---
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 This disclosure is being madepursuant to the Care Everywhere program and may not contain all information available regarding this patient. 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 Gender Identity Not on file Sexual Orientation Not on file Last Filed Vital Signs Vital Sign Reading Time Taken Comments Blood Pressure 134/87 07/22/2017 5:15 PM BOX HINGE AND LOCK ATTACHER Pulse 90 07/22/2017 5:15 PM BOX HINGE AND LOCK ATTACHER Temperature 36.5 C (97.7 F) 07/22/2017 4:23 PM BOX HINGE AND LOCK ATTACHER Respiratory Rate 18 07/22/2017 4:23 PM BOX HINGE AND LOCK ATTACHER Oxygen Saturation 98% 07/22/2017 5:15 PM BOX HINGE AND LOCK ATTACHER Inhaled Oxygen Concentration - - Weight 102.1 kg (225 lb) 07/22/2017 4:23 PM BOX HINGE AND LOCK ATTACHER Height 175.3 cm (5' 9) 07/22/2017 4:23 PM BOX HINGE AND LOCK ATTACHER Body Mass Index 33.23 07/22/2017 4:23 PM BOX HINGE AND LOCK ATTACHER Plan of Treatment Health Maintenance Due Date Last Done Comments HIV SCREENING 2004 HEPATITIS C SCREENING 10/07/2007 DTAP/TDAP/TD VACCINES (1 - Tdap) 2008 HEPATITIS B VACCINE (1 of 3 - 19+ 3-dose series) 2008 PNEUMOCOCCAL VACCINE (1 of 2 - PCV) 2008 HPV VACCINE (1 - 3-dose SCDM series) 2016 DEPRESSION SCREENING 08/21/2024 COVID-19 VACCINE (1 - 4-2 5 season) 2025 INFLUENZA VACCINE (#1) 2025 ZOSTER VACCINE (1 of 2) 2039 HIB VACCINE Aged Out No longer eligi ble based on patient's age to complete this topic MENINGOCOCCAL (Group B) VACC INE SHARED DECISION-MAKING Aged Out No longer eligibl e based on patient's age to complete this topic MENINGOCOCCAL GROUPS A/C/Y/W VACCINE Aged Out No longer eligible b ased on patient's age to complete this topic Insurance SELF PAY NO INSURANCE Member Subscriber Plan / Payer (Ef fective for All Dates) Name:Debby Crawford Member ID:Not on file Relation to Subscriber:Not on file Name:DEBBY CRAWFORD Subscriber ID:Not on file (Home) Address: [address] [place] [id number] Payer ID:Not on file Group ID:Not on file Type:Self Pay Address: [place], [place] PAYOR GENERIC Comp [employer]
[2025-05-04 10:10] VITALS: BP 147/65; PULSE 101; RESP 16; TEMP 36.8; O2SAT 94
--- NOTE | 2025-05-04 10:23 | ED.URI ---
HPI - URI/Sore Throat General Chief Complaint: Upper Respiratory Infection Stated Complaint: shortness of breath Time Seen by Provider: 05/04/25 10:16 Source: patient and RN notes reviewed Mode of arrival: ambulatory Limitations: no limitations History of Present Illness HPI Narrative: Patient presents today complaining of a one-week history of productive cough, nasal congestion, shortness of breath and wheezing. Worsening since onset. He has tried an albuterol inhaler occasionally with some mild improvement short-term. He usually takes Zyrtec or another allergy medication, but has stopped this a while ago as he did not feel it was helping his allergy symptoms. Denies fever. Denies history of asthma, COPD, but does report history of bronchitis in the past. He vapes, but has not vape to since symptoms began. Related Data Home Medications ?Medication ?Instructions ?Recorded ?Confirmed ?Last Taken ?Type omeprazole 20 mg capsule,delayed 20 mg PO DAILY 08/02/24 10/31/24 10/30/24 History release albuterol sulfate 90 mcg/actuation inhalation 05/04/25 Unknown History aerosol inhaler cetirizine 10 mg capsule (All Day 10 mg PO DAILY 05/04/25 Unknown History Allergy (cetirizine)) Allergies Allergy/AdvReac Type Severity Reaction Status Date / Time No Known Allergies Allergy Verified 05/04/25 10:21 [facility] Past Medical History Medical History Dysphagia GERD (gastroesophageal reflux disease) Obesity Wrist fracture, left Surgical History Surgical History History of dental surgery History of surgery on left wrist Family History Family History Father Alive and well Mother Alive and well Social History Social History Smoking packs per day: 0.25 Smoking cigarettes per day: 5.0 Smoking status: Current every day smoker Tobacco type: cigarettes and e-cigarettes/vaping Second hand tobacco smoke exposure: Yes Alcohol intake: current Drinks per week: 10 Substance use: never Substance use type: does not use Living arrangements: with family Occupation/Education: occupation Gender identity (if verbalized by the patient): Male Sexual Orientation (if Verbalized by the Patient): Straight or Heterosexual Spiritual care concerns: No Comments At time of signature, I have reviewed and agree with nursing past medical, surgical, social and family history unless otherwise noted. Please see nursing chart for further information. There is no relevant family history pertinent to the presenting complaint Exam Narrative: GENERAL: Mildly ill-appearing, well-nourished, and in no acute distress. HEAD: Normocephalic, atraumatic. EYES: EOMI. No redness or drainage. Conjunctivae normal. ENT: Mucous membranes pink and moist. Nares clear. No rhinorrhea. TMs normal bilaterally. Throat normal. Uvula midline. NECK: Normal AROM. Supple. No lymphadenopathy. CHEST: Audibly wheezing. Upon auscultation, patient has mild expiratory wheezing and is diminished throughout. HEART: Regular rate and rhythm. No murmur appreciated. EXTREMITIES: Normal range of motion. No edema. SKIN: Warm, dry, no rash. Capillary refill normal. Normal skin turgor. NEURO: No focal deficits. Alert and oriented x3. Gait steady. PSYCH: Normal affect. No signs of depression or anxiety. Course Course Emergency Course: 1055-After duoneb, patient's aeration has significantly improved. States he feels that his wheezing has improved as well. Repeat pulse ox 95%. Discussed cxr results and plan. RN to administer IM dexamethasone. Level of Care: Express Care Visit Vital Signs Vital signs: Vital Signs Temperature 98.2 F 05/04/25 10:10 Pulse Rate 101 H 05/04/25 10:10 Respiratory Rate 16 05/04/25 10:10 Blood Pressure 147/65 H 05/04/25 10:10 Pulse Oximetry 94 05/04/25 10:10 Oxygen Delivery Room Air 05/04/25 10:10 Temperature 98.2 F 05/04/25 10:10 Pulse Rate 96 05/04/25 10:37 Respiratory Rate 16 05/04/25 10:10 Blood Pressure 147/65 H 05/04/25 10:10 Pulse Oximetry 94 05/04/25 10:37 Oxygen Delivery Room Air 05/04/25 10:10 Review MDM - URI/Sore Throat MDM Narrative Medical decision making narrative: 34-year-old male patient presents today with a one-week history of productive cough, shortness of breath, nasal congestion. No history of asthma or COPD, but patient does have a p.r.n. albuterol inhaler with history of bronchitis. Upon exam, patient is audibly wheezing with expiratory wheezing upon auscultation and is diminished throughout. Chest x-ray negative. Symptoms likely viral in etiology which has caused significant bronchitis. Patient has been treated with a DuoNeb, which has helped his wheezing significantly. He has also been given an IM dose of dexamethasone. He will be treated with albuterol, prednisone. Patient agrees with plan. Anticipatory guidance given. Differential Diagnosis Differential diagnosis: Likely upper respiratory infection, viral infection, bronchitis and other (Pneumonia) Imaging Data Radiologist's impression: ITS Impressions Chest X-Ray 05/04/25 10:31 Impression: No acute cardiopulmonary abnormality. Critical Care Time Critical Care Time Critical Care Time: No Discharge Plan Discharge Clinical Impression: Viral infection, Bronchitis Patient Disposition: Home Condition: Stable Instructions: Acute Bronchitis (ED) Additional Instructions: Your chest xray is negative for pneumonia today. Please use all medications as prescribed. Use the spacer with your inhaler. Follow up with your PCP in 3 days if symptoms are not improving. Go to the ER if symptoms worsen. Your blood pressure was elevated above 120/80 today at Urgent Care. This puts you above the threshold for follow up. Please schedule a followup visit with your personal physician as soon as possible, for further evaluation and treatment. Even blood pressure exceeding 120/80 may indicate pre-hypertension. Patient Language: Swedish Prescriptions: New prednisone 50 mg tablet 50 mg PO DAILY 5 Days Qty: 5 0RF albuterol sulfate 90 mcg/actuation HFA aerosol inhaler 2 inh inhalation Q4-6H PRN (Reason: shortness of breath or wheezing) Qty: 8.5 0RF (DME) BreatheRite MDI Spacer Spacer See Rx Instructions .ROUTE .MEDSUPPLY Qty: 1 0RF Rx Instructions: As directed albuterol sulfate 2.5 mg /3 mL (0.083 %) solution for nebulization 2.5 mg inhalation Q4-6H PRN (Reason: shortness of breath or wheezing) Qty: 90 0RF No Action albuterol sulfate 90 mcg/actuation HFA aerosol inhaler INHALATION All Day Allergy (cetirizine) 10 mg capsule 10 mg PO DAILY omeprazole 20 mg capsule,delayed release(DR/EC) 20 mg PO DAILY Follow-up/Referrals: Vimal Wellington MD [Primary Care Provider, Family Practice] Stand Alone Forms: Work/School Release IP Time of Disposition: 11:00
[2025-05-04] MEDS: ALBUTEROL SULFATE NEB 2.5 MG/3 ML INH INHALATION (10:25)
[2025-05-04] MEDS: IPRATROPIUM BR 0.02% INH SOLN 0.5 MG/2.5 ML VIAL INHALATION (10:26)
[2025-05-04 10:37] VITALS: PULSE 96; O2SAT 94
[2025-05-04] MEDS: dexAMETHasone SOD PHOS INJ 10 MG/ML 1 ML VIAL IM (11:04)
== END 2025-05-04 11:20 | disposition home or self-care (01) ==
PROVIDERS: Emergency Provider Nurse Practitioner; PCP Emergency Medicine
DX: B34.9 Viral infection, unspecified (principal); J40 Bronchitis, not specified as acute or chronic; F17.210 Nicotine dependence, cigarettes, uncomplicated; F17.290 Nicotine dependence, other tobacco product, uncomplicated; K21.9 Gastro-esophageal reflux disease without esophagitis; E66.9 Obesity, unspecified; Z68.33 Body mass index [BMI] 33.0-33.9, adult
CPT/HCPCS: 71046; 96372; 99213; G0463; J1100

== ENCOUNTER 2025-07-10 14:44 | Emergency (ER) | payer BC, SELFPAY ==
[2025-07-10 14:52] VITALS: BP 143/79; PULSE 97; RESP 20; TEMP 36.7; O2SAT 94
--- NOTE | 2025-07-10 15:16 | ED.SOB ---
HPI - SOB/Dyspnea General Chief Complaint: Shortness of Breath/Dyspnea Stated Complaint: sob / Wheezing Time Seen by Provider: 07/10/25 15:19 Source: patient, RN notes reviewed and old records reviewed Mode of arrival: ambulatory Limitations: no limitations History of Present Illness HPI Narrative: 34-year-old male who presents to Express Care with complaints of having some shortness of breath with activity and wheezing today. 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 He admits that he use to smoke cigarettes and has been vaping for the past 3-4 years. He reports that he does have history of Bronchitis in the past. Patient admits to some nasal congestion and drainage for the past 2-3 days. He reports that he recently go CPAP machine in the past 2-3 weeks and he has been compliant with use. He denies any sore throat, ear pain or any fevers or body aches. MD elicited complaint: shortness of breath (wheezing) Pertinent past history: sepsis (history of bronchitis) Onset (ago): day(s) (2-3 days nasal drainage today dyspnea with activity and wheezing) Known history of: other (Bronchitis, sleep apnea, vaping) Treatment prior to arrival: none Related Data Home Medications ?Medication ?Instructions ?Recorded ?Confirmed ?Last Taken ?Type omeprazole 20 mg capsule,delayed 20 mg PO DAILY 08/02/24 10/31/24 10/30/24 History release albuterol sulfate 90 mcg/actuation inhalation 05/04/25 Unknown History aerosol inhaler cetirizine 10 mg capsule (All Day 10 mg PO DAILY 05/04/25 Unknown History Allergy (cetirizine)) Allergies Allergy/AdvReac Type Severity Reaction Status Date / Time No Known Allergies Allergy Verified 07/10/25 14:56 Review of Systems Review of Systems: CONSTITUTIONAL: Denies malaise, chills, sweats, or fever. EYES: Denies visual changes, redness, or discharge. ENT: Reports rhinorrhea, congestion,no sinus pain, no otalgia and no sore throat. CARDIOVASCULAR: Denies chest pain, palpitations, or edema. RESPIRATORY: Reports no cough states wheezing and some dyspnea with exertion.? GASTROINTESTINAL: Denies abdominal pain, nausea, vomiting, diarrhea SKIN: Denies rash or itching. MUSCULOSKELETAL: Denies myalgia. NEUROLOGIC: Denies headache. All systems reviewed & are unremarkable except as noted in HPI and below PMFSH Past Medical History Medical History Sleep apnea with use of continuous positive airway pressure (CPAP) Dysphagia GERD (gastroesophageal reflux disease) Obesity Wrist fracture, left Surgical History Surgical History History of dental surgery History of surgery on left wrist with bone graft hip Family History Family History Father Alive and well Mother Alive and well Social History Social History Smoking packs per day: 0.25 Smoking cigarettes per day: 5.0 Smoking status: Current every day smoker Tobacco type: cigarettes and e-cigarettes/vaping Second hand tobacco smoke exposure: Yes Additional smoking assessment comments: reports vaping only Alcohol intake: current Drinks per week: 10 Substance use: never Substance use type: does not use Living arrangements: with family Occupation/Education: occupation Gender identity (if verbalized by the patient): Male Sexual Orientation (if Verbalized by the Patient): Straight or Heterosexual Spiritual care concerns: No Comments At time of signature, agree with nursing past medical, surgical, social and family history. There is no relevant family history pertinent to the presenting complaint Exam Narrative: GENERAL: Well-appearing, well-nourished, and in no acute distress. HEAD: Normocephalic EYES: PERRLA, conjunctivae clear ENT: Nares clear, turbinates edematous and erythematous, clear discharge. Mucous membranes moist. TM pearly parnell with dull light reflex bilaterally; no tragal tenderness. Oropharynx erythematous without lesions. Tonsils not enlarged and without exudate, no drooling, no hoarseness, no trismus, uvula midline.post nasal draiinage NECK: Supple. No lymphadenopathy CHEST: Scattered wheezing throughout lung carvalho on auscultation, breath sounds equal. + wheezing,no rhonchi, rales, or stridor. No respiratory distress, speaks in full sentences.SAO2 94% on room air, no tachypnea or any retractions HEART: Regular rate and rhythm. No murmur heard. SKIN: Warm, dry, no rash. NEURO: Alert and oriented x3. PSYCH: Normal mood and affect Course Course Emergency Course: Patient is aware of diagnosis, understands and agrees to treatment plan.? Anticipatory guidance given.? Patient agrees to follow-up as directed and is aware of reasons to seek care at the emergency department. Portions of this record may have been created with voice recognition software Level of Care: Express Care Visit Vital Signs Vital signs: Vital Signs Temperature 36.7 C 07/10/25 14:52 Pulse Rate 97 07/10/25 14:52 Respiratory Rate 20 07/10/25 14:52 Blood Pressure 143/79 H 07/10/25 14:52 Pulse Oximetry 94 07/10/25 14:52 Oxygen Delivery Room Air 07/10/25 14:52 Temperature 36.7 C 07/10/25 14:52 Pulse Rate 97 07/10/25 14:52 Respiratory Rate 20 07/10/25 14:52 Blood Pressure 143/79 H 07/10/25 14:52 Pulse Oximetry 94 07/10/25 14:52 Oxygen Delivery Room Air 07/10/25 14:52 Reviewed MDM - SOB/Dyspnea Differential Diagnosis Differential diagnosis: Likely asthma with exacerbation and other (bronchitis, URI, viral infection) Medical Records Attestation: I reviewed the patient's medical records. Lab Data Attestation: I reviewed the patient's lab results. Critical Care Time Critical Care Time Critical Care Time: No Discharge Plan Discharge Clinical Impression: Bronchitis Patient Disposition: Home Condition: Stable Instructions: Antibiotic Form, Acute Bronchitis (ED) Additional Instructions: Increase fluids especially juices and water [id number] cough and cold medicine of your choice for your symptoms Zyrtec Claritin or Samantha daily for sinus congestion and drainage Continue your inhaler/nebulizer as directed Steroids as directed--take with food heat to the face 20-30 minutes 4-6 times a day for pain Salt water gargles, throat lozenges or throat sprays as desired Antibiotic as directed--finished the medication If your symptoms persist, change or worsen significantly before you can contact your personal physician then please, without delay, go to the emergency department for further evaluation. Follow-up with PCP in 7-10 days or sooner if needed Follow up with PCP soon in regards to your blood pressure which is elevated above threshold for referral. Blood pressure above 120/80 may indicate pre-hypertension. 143/79 Patient Language: Guyanese Prescriptions: New albuterol sulfate [Ventolin HFA] 90 mcg/actuation HFA aerosol inhaler 2 puff inhalation QID PRN (Reason: shortness of breath or wheezing) Qty: 8.5 0RF Rx Instructions: whatever is covered by insurance azithromycin 250 mg tablet See Rx Instructions .ROUTE .COMPLEX Qty: 6 0RF Rx Instructions: For 250 mg dose pack: take 500 mg today (day 1), then 250 mg for 4 days (days 2-5) prednisone 20 mg tablet 40 mg PO DAILY 5 Days Qty: 10 0RF No Action albuterol sulfate 90 mcg/actuation HFA aerosol inhaler INHALATION All Day Allergy (cetirizine) 10 mg capsule 10 mg PO DAILY albuterol sulfate 90 mcg/actuation HFA aerosol inhaler 2 inh inhalation Q4-6H PRN (Reason: shortness of breath or wheezing) Qty: 8.5 0RF (DME) BreatheRite MDI Spacer Spacer See Rx Instructions .ROUTE .MEDSUPPLY Qty: 1 0RF Rx Instructions: As directed albuterol sulfate 2.5 mg /3 mL (0.083 %) solution for nebulization 2.5 mg inhalation Q4-6H PRN (Reason: shortness of breath or wheezing) Qty: 90 0RF omeprazole 20 mg capsule,delayed release(DR/EC) 20 mg PO DAILY Follow-up/Referrals: Vimal Wellington MD [Primary Care Provider, Family Practice] Time of Disposition: 15:33 [place] Coma Scale Eyes: Open Verbal: Oriented and Alert Motor: Follows Commands Dio Coma Total Score: 15
--- OUTSIDE RECORDS SUMMARY | 2025-07-10 17:43 | XMS_ITS | Clinical Summary ---
Author Organization [facility] Address [address] [place] [address] Care Team Providers Care Learning And Development Specialist Name Role Phone Unavailable Primary Care Provider Unavailabl e Source Comments [facility],non-owned Affiliates and Associated Physician Practices is amultiple site organization consisting of ambulatory clinics and hospital sitesin [place], [place], [place] and [place]. This disclosure is being madepursuant to the Care Everywhere program and may not contain all information available regarding this patient. Last updated 18.[facility] Walk-in Appointment Scheduler Allergies No known active allergies Social History Tobacco Use Types Packs/Day Years Used Date Smoking Tobacco: Some Days Cigarettes Alcohol Use Standard Drinks/Week Comments Yes 0 (1 standard drink = 0.6 oz pur e alcohol) social Sex and Gender Information Value Date Recorded Sex Assigned at Not on file Legal Sex Male 4:15 PM [employer] Gender Identity Not on file Sexual Orientation Not on file Last Filed Vital Signs Vital Sign Reading Time Taken Comments Blood Pressure 134/87 07/22/2017 5:15 PM [employer] Pulse 90 07/22/2017 5:15 PM [employer] Temperature 36.5 C (97.7 F) 07/22/2017 4:23 PM [employer] Respiratory Rate 18 07/22/2017 4:23 PM [employer] Oxygen Saturation 98% 07/22/2017 5:15 PM [employer] Inhaled Oxygen Concentration - - Weight 102.1 kg (225 lb) 07/22/2017 4:23 PM [employer] Height 175.3 cm (5' 9) 07/22/2017 4:23 PM [employer] Body Mass Index 33.23 07/22/2017 4:23 PM [employer] Plan of Treatment Health Maintenance Due Date Last Done Comments HIV SCREENING 2004 HEPATITIS C SCREENING 10/07/2007 DTAP/TDAP/TD VACCINES (1 - Tdap) 2008 HEPATITIS B VACCINE (1 of 3 - 19+ 3-dose series) 2008 PNEUMOCOCCAL VACCINE (1 of 2 - PCV) 2008 HPV VACCINE (1 - 3-dose SCDM series) 2016 DEPRESSION SCREENING 08/21/2024 COVID-19 VACCINE (3 - 2024-2 6 season) 2025 07/02/2021, 06/04/2021 INFLUENZA VACCINE (#1) 2025 ZOSTER VACCINE (1 of 2) 2039 HIB VACCINE Aged Out No longer eligi ble based on patient's age to complete this topic MENINGOCOCCAL (Group B) VACCINE SHARED DECISION-MAKING Aged Out No longer eligible based on patient's age to complete this topic MENINGOCOCCAL GROUPS A/C/Y/W VACCINE Aged Out No longer eligible b ased on patient's age to complete this topic Insurance SELF PAY NO INSURANCE Member Subscriber Plan / Payer (Ef fective for All Dates) Name:Debby Crawford Member ID:Not on file Relation to Subscriber:Not on file Name:DEBBY CRAWFORD Subscriber ID:Not on file (Home) Address: [address] [place] [id number] Payer ID:Not on file Group ID:Not on file Type:Self Pay Address: [place], [place] 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
== END 2025-07-10 15:40 | disposition home or self-care (01) ==
PROVIDERS: Emergency Provider Registered Nurse; PCP Emergency Medicine
DX: J40 Bronchitis, not specified as acute or chronic (principal); F17.210 Nicotine dependence, cigarettes, uncomplicated
CPT/HCPCS: 99213; G0463